=== PATIENT | female | born 1990 | race Caucasian/White ===

== ENCOUNTER 2018-07-05 08:06 | Inpatient (IN) ==
[2018-07-05] MEDS ORDERED: Sod Chloride 0.9% Inj 1,000 ML IV.CONT PRN (08:46)
[2018-07-05] MEDS ORDERED: Sodium Chlor 0.9% Inj 500 ML IV.SIG PRN (08:46)
[2018-07-05] MEDS ORDERED: fentaNYL Citrate Inj 100 MCG/2 ML Ampul IV.PUSH PRN ×2 (08:46)
[2018-07-05] MEDS ORDERED: Naloxone Inj 0.4 MG/ML Vial IV.PUSH PRN ×2 (08:46→17:50)
[2018-07-05] MEDS ORDERED: Oxytocin 30 Units/500ml Premix 30 UNITS/500 ML BAG IV.SIG ONE (08:46)
--- NOTE | 2018-07-05 08:52 | P.HPOB ---
History of Present Illness Primary Care Physician: No Primary Care Physician Dr. Mejia Chief Complaint: Leaking fluid and zenaida History of Present Illness: Patient is a 27-year-old white female at 38 weeks who goes to the [facility] and sees Dr. Mejia and now presents complaining of leakage of fluid per vagina since early this morning. She is having some contractions as well denies bleeding. NST is reactive and she is zenaida irregularly on the monitor. Her amateur is positive. Weeks Gestation:: 38 Para: 0 : 1 Review of Systems All other systems reviewed negative except as stated in HPI PMFSH - History History Provided By: Patient - Medical History Medical History: Medical History (Last Updated 07/05/18 @ 08:49 by Alpesh Nuñez MD) Hypothyroidism Polycystic ovary syndrome - Surgical History Surgical History: Surgical History (Last Updated 07/05/18 @ 08:50 by Alpesh Nuñez MD) S/P LEEP (loop electrosurgical excision procedure) - Tobacco History Second Hand Smoke Exposure: No Smoking Status: Never smoker - Alcohol History How Often Do You Have a Drink Containing Alcohol: Never - Substance Use History Substance History: No History of Abuse - Travel History History of Recent Travel: No Recent Travel in the [place] Within the Last 8 Weeks: No Recent Travel Out of the Country Within the Last 8 Weeks: No Medications and Allergies Allergies Allergy/AdvReac Type Severity Reaction Status Date / Time No Known Allergies Allergy Verified 07/05/18 08:19 Home Medications Medication Instructions Recorded Confirmed Type levothyroxine [Synthroid] 75 mcg PO DAILY 03/28/18 07/05/18 History vit,[id number] 1 tab PO DAILY 03/28/18 07/05/18 History [PNV 29-1] Exam Vital signs: Intake & Output 07/04/18 07/05/18 07/05/18 18:59 06:59 18:59 Weight 110.223 kg Narrative: GENERAL: Well-nourished, well-developed patient. SKIN: Warm and dry. HEAD: Normocephalic and atraumatic. EYES: No scleral icterus. No injection or drainage. ENT: No nasal drainage noted. Mucous membranes pink. Airway patent. NECK: Supple, trachea midline. No JVD. CARDIOVASCULAR: Regular rate and rhythm without murmurs, gallops, or rubs. RESPIRATORY: Breath sounds equal bilaterally. No accessory muscle use. BREASTS: Bilateral exam showed no masses , no retractions, no nipple discharge. ABDOMEN/GI: Abdomen soft, non-tender, bowel sounds present, no rebound, no guarding Gravid to [-38] weeks size Fundal Height: [38-] GENITOURINARY: External Genitalia: intact and normal in appearance BUS glands: [-] Cervix: [post-] Dilatation: [-4] Effacement: [90-] Station: [-3] Presentation: [-vtx] Membranes: [ ruptured] Uterine Contractions: [irreg-] FHT's: Category: [1-] Baseline: [-144] Reactive: [-R] Variability: [mod-] Decels: [-0] + accels EXTREMITIES: No cyanosis or edema. BACK: Nontender without obvious deformity. No CVA tenderness. NEUROLOGICAL: Awake and alert. Motor and sensory grossly within normal limits. Five out of 5 muscle strength in all muscle groups. Normal speech. Results - Labs Labs: Amnio sure positive Caprini VTE Risk Assessment Caprini VTE Risk Assessment: No/Low Risk (score <= 1) Caprini Risk Assessment Model: Point Value = 1 Point Value = 2 Point Value = 3 Point Value = 5 Age 41-60 Minor surgery BMI > 25 kg/m2 Swollen legs Varicose veins or History of unexplained or recurrent spontaneous Oral contraceptives or hormone replacement Sepsis (< 1 month) Serious lung disease, including pneumonia (< 1 month) Abnormal pulmonary function Acute myocardial infarction Congestive heart failure (< 1 month) History of inflammatory bowel disease Medical patient at bed rest Age 61-74 Arthroscopic surgery Major open surgery (> 45 min) Laparoscopic surgery (> 45 min) Malignancy Confined to bed (> 72 hours) Immobilizing plaster cast Central venous access Age >= 75 History of VTE Family history of VTE Factor V Leiden Prothrombin [id number] Lupus anticoagulant Anticardiolipin antibodies Elevated serum homocysteine Heparin-induced thrombocytopenia Other congenital or acquired thrombophilia Stroke (< 1 month) Elective arthroplasty Hip, pelvis, or leg fracture Acute spinal cord injury (< 1 month) Prophylaxis Regimen: Total Risk Factor Score Risk Level Prophylaxis Regimen 0-1 Low Early ambulation 2 Moderate Order ONE of the following: *Sequential Compression Device (SCD) *Heparin 5000 units SQ BID 3-4 Higher Order ONE of the following medications: *Heparin 5000 units SQ TID *Enoxaparin/Lovenox 40 mg SQ daily (WT < 150 kg, CrCl > 30 mL/min) *Enoxaparin/Lovenox 30 mg SQ daily (WT < 150 kg, CrCl > 10-29 mL/min) *Enoxaparin/Lovenox 30 mg SQ BID (WT < 150 kg, CrCl > 30 mL/min) AND/OR *Sequential Compression Device (SCD) 5 or more Highest Order ONE of the following medications: *Heparin 5000 units SQ TID (Preferred with Epidurals) *Enoxaparin/Lovenox 40 mg SQ daily (WT < 150 kg, CrCl > 30 mL/min) *Enoxaparin/Lovenox 30 mg SQ daily (WT < 150 kg, CrCl > 10-29 mL/min) *Enoxaparin/Lovenox 30 mg SQ BID (WT < 150 kg, CrCl > 30 mL/min) AND *Sequential Compression Device (SCD) Assessment and Plan - Diagnosis (1) 38 weeks gestation of Code(s): Z3A.38 - 38 weeks gestation of Status: Acute (2) Leakage of amniotic fluid Code(s): O42.90 - Premature rupture of membranes, unspecified as to length of time between rupture and onset of labor, unspecified weeks of gestation Status : Acute - Plan This patient is 38 weeks and primiparous with spontaneous rupture of membranes now at term. Am sure is positive. NST is reactive she is zenaida irregularly. Cervix is 4/90/-3. Plan to admit to the hospital to her private OB doctor managed monitor labor appropriately augment as needed anticipate vaginal delivery
[2018-07-05] MEDS ORDERED: Citric Acid/Sodium Citrate Liq 30 ML UDC PO SCH (09:00)
[2018-07-05] MEDS ORDERED: Oxytocin 30 Units/500ml Premix 30 UNITS/500 ML BAG IV.SIG PRN (09:09)
--- NOTE | 2018-07-05 09:14 | P.OBGPN ---
S: Patient doing well, painful contractions, O: Exam: Deferred, recent check by nursing 4 cm FHTs: 140s-150s, moderate variability, accelerations present, no decelerations TOCO: Contractions every 3-5 minutes A/P 27-year-old G1 at 38 weeks and 1 day admitted for labor with spontaneous rupture of membranes. 1. IUP: Category 1 tracing - cephalic, EFW 7lbs, GBS collected and pending, unknown at this time. Will collect rapid GBS 2. Labor/SROM: Continue expectant management, begin Pitocin if no further change at future checks. Anticipate . 3. Hypothyroidism: Continue routine home Synthroid 4. History of LEEP: 09/02/2017, AMISH 2-3 with positive margins, plans for Pap and ECC .
[2018-07-05 09:55] LABS: Baso # (Auto) 0.1 th/mm3 (0.0-0.2); Baso % (Auto) 0.3 % (0.0-2.0); Eos # (Auto) 0.1 th/mm3 (0.0-0.4); Eos % (Auto) 0.8 % (0.0-4.0); Hematocrit 36.4 % (35.0-46.0); Hemoglobin 12.4 gm/dL (11.6-15.3); Mean Corpuscular HGB Conc 34.2 % (32.0-36.0); Mean Corpuscular Volume 84.6 fL (80.0-100.0); Mean Platelet Volume 8.9 fL (7.0-11.0); Mono % (Auto) 6.2 % (0.0-8.0); Neut # (Auto) 11.6 th/mm3 (1.8-7.7); Neut % (Auto) 73.7 % (16.0-70.0); Platelet Count 252 th/mm3 (150-450); Red Cell Distribution Width 14.7 % (11.6-17.2); White Blood Count 15.7 th/mm3 (4.0-11.0)
[2018-07-05 09:56] LABS: Bacteria,Urine Rare /hpf; Bilirubin,Urine Negative (Negative); Calcium Oxalate Crystals,Urine Moderate /hpf; Clarity,Urine Hazy (Clear); Color,Urine Yellow (Yellw/Straw); Glucose,Urine (UA) Negative (Negative); Leukocyte Esterase,Urine Trace (Negative); Mucus,Urine Few /lpf (Occasional); Nitrite,Urine Negative (Negative); Specific Gravity,Urine 1.013 (1.002-1.035); Squamous Epithelial Cell,Urine 8 /hpf (0-5)
[2018-07-05 09:58] LABS: Amphetamine Urine With Conf Neg (Neg); Benzodiazepine Urine With Conf Neg (Neg); Cocaine Urine With Conf Neg (Neg); Opiates Urine With Conf Neg (Neg)
[2018-07-05 10:02] LABS: Cannabinoid Urine With Conf Neg (Neg)
[2018-07-05] MEDS ORDERED: fentaNYL 2MCG-Bupiv 0.125% Epi 150 ML EPIDURAL ONE (12:13)
[2018-07-05] MEDS ORDERED: Bupivacaine PF 0.25% Inj 10 ML Vial ONE (15:33)
[2018-07-05] MEDS ORDERED: Lidocaine 2%/Epinephrine 1:200,000 PF 10 ML SDV ONE (15:34)
[2018-07-05] MEDS ORDERED: Diphtheria/Tetanus/Pertussis Vaccine Inj 0.5 ML Syringe IM ONE (16:00)
[2018-07-05] MEDS ORDERED: fentaNYL 2MCG-Bupiv 0.125% Epi 150 ML EPIDURAL PRN (16:00)
[2018-07-05] MEDS ORDERED: Measles/Mumps/Rubella Vaccine Inj 0.5 ML Vial SQ ONE (16:00)
[2018-07-05] MEDS ORDERED: fentaNYL Citrate Inj 100 MCG/2 ML Ampul EPIDURAL ONE (16:00)
[2018-07-05] MEDS ORDERED: Lidocaine 1% Inj 50 ML Vial ONE (17:17)
[2018-07-05] MEDS ORDERED: Bisacodyl 10 MG Supp RECTAL PRN (17:50)
[2018-07-05] MEDS ORDERED: Oxytocin 30 Units/500ml Premix 30 UNITS/500 ML BAG IV.CONT PRN (17:50)
[2018-07-05] MEDS ORDERED: Benzocaine 20% Top Spray 60 ML Can TOPICAL PRN (17:50)
[2018-07-05] MEDS ORDERED: Zolpidem Tartrate 5 MG Tablet PO PRN (17:50)
[2018-07-05] MEDS ORDERED: Witch Hazel 50%/Glyderin 12.5% 40 Pad Jar RECTAL PRN (17:50)
--- NOTE | 2018-07-05 17:56 | P.OP ---
Surgeon: Randy Mejia MD Operation and Findings: Preoperative diagnosis: 1. Intrauterine at 38 weeks and 1 day 2. Labor 3. Hypothyroidism 4. Obesity 5. History of LEEP Postop diagnosis 1. Same as above status post Procedure 1. Term spontaneous vaginal delivery Surgeon Dr. Randy Mejia Cycle Manager: Milady labor and delivery nursing staff Findings: 1. Viable female infant at 5:25 PM, Apgars 8 and 9, weight 2960g 2. Intact placenta 3 vessel cord at 5:28 PM 3. Second-degree perineal laceration Anesthesia: Epidural, 10 cc 1% lidocaine with epinephrine for perineal repair Specimen: Placenta to disposal Estimated blood loss: 300 cc Fluid replacement: Lactated Ringer's and Pitocin Urine output: None recorded DVT prophylaxis: None required Antibiotics: None required Counts: correct x2 Time out done: yes Disposition: Stable to Indications: Patient is a 27-year-old G1 who presented with spontaneous rupture membranes at 38 weeks and 1 day, she was augmented with Pitocin after she made no further cervical change, she progressed to complete with reassuring heart tones, she had poor pain control during her second stage but otherwise did well. I was called to the room when she was . Description of procedure: The patient began pushing after the bed was broken down, the head upon was allowed to restitute naturally for delivery with a supported perineum, with gentle downward guidance the anterior shoulder was delivered followed by gentle upper guidance for the posterior shoulder, the torso and lower extremities were delivered with ease and with continued perineal support. The had spontaneous cry and was placed on mom's abdomen for skin to skin contact, we allowed delayed cord clamping. After the cord was clamped and cut, cord blood was obtained. Pitocin was bolused and with fundal massage the placenta was delivered, there is minimal uterine bleeding and uterus was firm. The perineum, vagina and cervix were inspected and found to have a second-degree laceration, the area was anesthetized with lidocaine and repaired in the standard fashion.. The patient tolerated the procedure well and was left in the birthing suite with her .
[2018-07-06] MEDS: Senna/Docusate Sodium 8.6/50 MG Tablet PO SCH ×3 (01:25→21:18)
[2018-07-06] MEDS: Acetaminophen 325 MG Tablet PO PRN ×3 (03:17→20:56)
--- NOTE | 2018-07-06 07:32 | P.PNOB ---
Subjective Post day: 1 Interval history: Doing well, pain controlled, some perineal tenderness, no nausea or vomiting, vaginal bleeding less than menses. Objective Vital Signs/I&O: Vital Signs 07/05/18 08:26 07/05/18 08:30 07/05/18 08:58 Temperature 99.0 F Pulse Rate 75 79 Respiratory Rate 18 Blood Pressure 138/78 124/86 07/05/18 11:00 07/05/18 12:30 07/05/18 12:35 Temperature 98.8 F Pulse Rate 75 79 69 Respiratory Rate 18 18 Blood Pressure 143/78 H 123/46 L 07/05/18 12:46 07/05/18 13:20 07/05/18 13:25 Temperature 98.1 F Pulse Rate 81 63 66 Respiratory Rate 18 Blood Pressure 102/54 L 121/60 07/05/18 14:00 07/05/18 14:25 07/05/18 14:35 Temperature 98.0 F Pulse Rate 67 63 69 Respiratory Rate 20 Blood Pressure 125/61 117/66 133/72 07/05/18 14:40 07/05/18 15:00 07/05/18 15:10 Temperature 98.5 F Pulse Rate 67 68 69 Respiratory Rate 18 Blood Pressure 142/86 H 118/76 07/05/18 15:25 07/05/18 15:32 07/05/18 16:00 Temperature 99.4 F Pulse Rate 76 80 Respiratory Rate 20 Blood Pressure 135/73 116/94 H 07/05/18 16:05 07/05/18 16:20 07/05/18 17:10 Temperature Pulse Rate 90 76 75 Respiratory Rate Blood Pressure 132/85 151/78 H 155/82 H 07/05/18 17:45 07/05/18 18:00 07/05/18 18:01 Temperature 98.7 F Pulse Rate 102 H 89 79 Respiratory Rate 20 20 Blood Pressure 141/70 H 137/81 137/67 07/05/18 18:14 07/05/18 18:17 07/05/18 18:45 Temperature Pulse Rate 68 74 Respiratory Rate 18 18 16 Blood Pressure 120/106 H 129/69 07/05/18 18:46 07/05/18 19:01 07/05/18 19:18 Temperature 98.8 F Pulse Rate 78 74 Respiratory Rate Blood Pressure 129/73 123/69 07/05/18 19:45 Temperature 98.2 F Pulse Rate 68 Respiratory Rate 20 Blood Pressure 115/66 Intake & Output 07/05/18 07/06/18 07/06/18 18:59 06:59 18:59 Intake Total 1000 / 1000 Balance 1000 / 1000 Weight 94.801 kg Intake: IV 1000 / 1000 LR 1000 mL Inj 1,000 ML @ 125 1000 / 1000 mls/hr IV.CONT .Q8H [facility] Rx#: [id number] Result Diagrams: 07/05/18 09:20 Objective Remarks: GENERAL: Well-nourished, well-developed patient. CARDIOVASCULAR: Regular rate and rhythm without murmurs, gallops, or rubs. RESPIRATORY: Breath sounds equal bilaterally. No accessory muscle use. ABDOMEN/GI: Abdomen soft, non-tender. Fundus: Firm, non-tender at umbilicus. GENITOURINARY: Light to moderate bleeding. EXTREMITIES: No cyanosis or edema, non-tender, without signs of DVT. Medications and IVs: Active Medications Acetaminophen (Tylenol) 650 mg PO Q4H PRN PRN Reason: PAIN SCALE 1 TO 2 Last Admin: 07/06/18 03:17 Dose: 650 mg Al Hydroxide/Mg Hydroxide (Milk Of Magnesia Liq) 30 ml PO Q12H PRN PRN Reason: Mild Constipation Benzocaine (Americaine 20% Top [place]) 1 spray TOPICAL Q4H PRN PRN Reason: For Perineum Discomfort Last Admin: 07/06/18 03:07 Dose: 1 spray Bisacodyl (Dulcolax Supp) 10 mg RECTAL DAILY PRN PRN Reason: SEVERE CONSITIPATION Oxytocin (Pitocin 30 Units/Ns 500 Ml Premix) 30 units in 500 mls @ 100 mls/hr IV.CONT UNSCH PRN PRN Reason: Heavy bleeding Ibuprofen (Motrin) 800 mg PO Q8H PRN PRN Reason: For Cramping Last Admin: 07/06/18 03:07 Dose: 800 mg Lactulose (Lactulose Liq) 30 ml PO DAILY PRN PRN Reason: SEVERE CONSITIPATION Levothyroxine Sodium (Synthroid) 75 mcg PO DAILY@0600 [facility] Miscellaneous Information (Misc Information) 1 each OTHER UNSCH PRN PRN Reason: SEE LABEL COMMENTS Stop: 07/06/18 16:01 Miscellaneous Information (Misc Information) 1 each OTHER UNSCH PRN PRN Reason: SEE LABEL COMMENTS Stop: 07/06/18 16:01 Naloxone HCl (Narcan Inj) 0.1 mg IV.PUSH Q2M PRN PRN Reason: for opiate reversal Ondansetron HCl (Zofran Odt) 4 mg PO Q6H PRN PRN Reason: NAUSEA OR VOMITING Vit/Calcium/Iron/Folic Ac (Stuartnatal Plus 3) 1 tab PO DAILY [facility] Senna/Docusate Sodium (Meredith-Colace) 1 tab PO BID [facility] Last Admin: 07/06/18 01:25 Dose: Not Given Sennosides (Senokot) 17.2 mg PO Q12H PRN PRN Reason: Moderate Constipation Sodium Chloride (Ns Flush) 2 ml IV.FLUSH BID [facility] Last Admin: 07/06/18 01:25 Dose: Not Given Sodium Chloride (Ns Flush) 2 ml IV.FLUSH PRN PRN PRN Reason: FLUSH AFTER USING IV ACCESS Witch Tiffanie/Glycerin (Tucks Pads) 1 applicatio RECTAL QID PRN PRN Reason: HEMORRHOIDS Last Admin: 07/06/18 03:07 Dose: 1 applicatio Zolpidem Tartrate (Ambien) 5 mg PO HS PRN PRN Reason: SLEEP Assessment and Plan - Plan 27-year-old status post at 38 weeks and 1 day. 1. day #1: Doing well, meeting milestones, anticipate discharge home tomorrow. Discussed precautions expectations and follow-up. -Female 2. Reflex urine culture: We will follow-up and treat appropriately if needed 3. Hypothyroidism: Continue home Synthroid.
[2018-07-06] MEDS: Levothyroxine 75 MCG Tablet PO SCH (07:40)
[2018-07-06] MEDS: Prenatal Vit/Ca/Iron/Folic Acid Tablet PO SCH (09:06)
[2018-07-07] MEDS: Acetaminophen 325 MG Tablet PO PRN ×2 (02:02→05:55)
--- NOTE | 2018-07-07 08:18 | P.PNOB ---
Subjective Post day: 2 Interval history: Doing well and ready for discharge\pumping and no issues Objective Vital Signs/I&O: Vital Signs 07/06/18 20:25 Temperature 97.8 F Pulse Rate 68 Respiratory Rate 18 Blood Pressure 128/73 Result Diagrams: 07/05/18 09:20 Objective Remarks: GENERAL: Well-nourished, well-developed patient. CARDIOVASCULAR: Regular rate and rhythm without murmurs, gallops, or rubs. RESPIRATORY: Breath sounds equal bilaterally. No accessory muscle use. ABDOMEN/GI: Abdomen soft, non-tender. Fundus: Firm, non-tender at umbilicus. GENITOURINARY: Light to moderate bleeding. EXTREMITIES: No cyanosis or edema, non-tender, without signs of DVT. Medications and IVs: Active Medications Acetaminophen (Tylenol) 650 mg PO Q4H PRN PRN Reason: PAIN SCALE 1 TO 2 Last Admin: 07/07/18 05:55 Dose: 650 mg Al Hydroxide/Mg Hydroxide (Milk Of Magnesia Liq) 30 ml PO Q12H PRN PRN Reason: Mild Constipation Benzocaine (Americaine 20% Top [place]) 1 spray TOPICAL Q4H PRN PRN Reason: For Perineum Discomfort Last Admin: 07/06/18 03:07 Dose: 1 spray Bisacodyl (Dulcolax Supp) 10 mg RECTAL DAILY PRN PRN Reason: SEVERE CONSITIPATION Oxytocin (Pitocin 30 Units/Ns 500 Ml Premix) 30 units in 500 mls @ 100 mls/hr IV.CONT UNSCH PRN PRN Reason: Heavy bleeding Ibuprofen (Motrin) 800 mg PO Q8H PRN PRN Reason: For Cramping Last Admin: 07/07/18 05:55 Dose: 800 mg Lactulose (Lactulose Liq) 30 ml PO DAILY PRN PRN Reason: SEVERE CONSITIPATION Levothyroxine Sodium (Synthroid) 75 mcg PO DAILY@0600 [facility] Last Admin: 07/06/18 07:40 Dose: Not Given Naloxone HCl (Narcan Inj) 0.1 mg IV.PUSH Q2M PRN PRN Reason: for opiate reversal Ondansetron HCl (Zofran Odt) 4 mg PO Q6H PRN PRN Reason: NAUSEA OR VOMITING Vit/Calcium/Iron/Folic Ac (Stuartnatal Plus 3) 1 tab PO DAILY [facility] Last Admin: 07/06/18 09:06 Dose: Not Given Senna/Docusate Sodium (Meredith-Colace) 1 tab PO BID [facility] Last Admin: 07/06/18 21:18 Dose: 1 tab Sennosides (Senokot) 17.2 mg PO Q12H PRN PRN Reason: Moderate Constipation Sodium Chloride (Ns Flush) 2 ml IV.FLUSH BID [facility] Last Admin: 07/06/18 09:07 Dose: 2 ml Sodium Chloride (Ns Flush) 2 ml IV.FLUSH PRN PRN PRN Reason: FLUSH AFTER USING IV ACCESS Witch Tiffanie/Glycerin (Tucks Pads) 1 applicatio RECTAL QID PRN PRN Reason: HEMORRHOIDS Last Admin: 07/06/18 03:07 Dose: 1 applicatio Zolpidem Tartrate (Ambien) 5 mg PO HS PRN PRN Reason: SLEEP Assessment and Plan - Plan 27-year-old status post at 38 weeks and 1 day. 1. day #1: Doing well, meeting milestones, anticipate discharge home tomorrow. Discussed precautions expectations and follow-up. -Female 2. Reflex urine culture: We will follow-up and treat appropriately if needed 3. Hypothyroidism: Continue home Synthroid. PPD 2 As above urine culture pending Return to office in 2 weeks
[2018-07-07] MEDS: Prenatal Vit/Ca/Iron/Folic Acid Tablet PO SCH (09:46)
[2018-07-07] MEDS: Levothyroxine 75 MCG Tablet PO SCH (09:46)
[2018-07-07] MEDS: Senna/Docusate Sodium 8.6/50 MG Tablet PO SCH (09:46)
== END 2018-07-07 12:42 | disposition home or self-care (01) ==
LOC: HOBED 08:06 → H2E 08:45 → H1EA 08:55
PROVIDERS: ADMIT Obstetrics & Gynecology; ATTEND Obstetrics & Gynecology